=== PATIENT | male | born 1960 | race Caucasian/White ===

== ENCOUNTER 2023-02-26 | Outpatient (REF) | payer OTHER, SELFPAY | END 2023-02-26 00:01 | disposition home or self-care (01) | LOC: HO.HMGCLNP | PROVIDERS: Visit Provider Nurse Practitioner Primary Care | DX: Z11.52 Encounter for screening for COVID-19 (principal); J06.9 Acute upper respiratory infection, unspecified | CPT/HCPCS: 0241U ==

== ENCOUNTER 2023-02-26 13:05 | Outpatient (AMB) | payer OTHER, SELFPAY ==
--- NOTE | 2023-02-26 15:52 | MHC.OFFWIV ---
Intake Vital Signs 02/26/23 15:57 Height 5 ft 7.5 in BP 118/72 Blood Pressure Location Lt brachial Position Sitting Pulse 74 Pulse Source Pulse Oximeter Temp 98.1 F Temp Source Oral Pulse Oximetry (%) 97 Oxygen Delivery Method Room Air Intake Visit Reasons: [employer], right eye irritation,chest eusebia (Lobby masked) Intake Note: pt is here for c/o right eye irritation, denies vision changes, chest congestion, back pain since zhang Patient Tobacco Use Status: Never used Tobacco Allergies No Known Allergies Allergy (Mild, Verified 02/26/23 15:57) NONE Do you need a note to return to daycare/school/sports/work: Yes HPI HPI Comments History of Present Illness Details Patient is a 62-year-old male in today for a sick visit. He has symptoms of sore throat, cough, chest tightness x5 days. States that other people at home are also sick. He also has a complaint eye redness in the right eye with excessive mucus production to the point that it feels like when he wakes up his eye is closed shut. States that there is an intermittent stinging when he tries to wash it. Denies any trauma to the area. Does have a past surgical history significant for for cataract surgery with lens. Denies any vision changes. Denies any nausea, vomiting, chest pain, shortness a breath, dizziness. [facility] Social History (System 06/07/20 @ 15:24 by Germania Frausto) Patient Tobacco Use Status: Never used Tobacco Review of Systems Const Details: Constitutional : No Weight loss, No Fever, No Chills, Admits Fatigue, No Malaise ENT/Mouth : Admits sore throat, No Rhinorrhea Eyes: Admits intermittent eye discomfort, Admits Swelling, Admits Redness Cardiovascular : No Chest Pain, No SOB, No Dyspnea on Exertion, No Orthopnea, No Edema, No Palpitations Respiratory : Admits Cough, Admits Sputum, No Wheezing Gastrointestinal : No Nausea, No Vomiting, No Diarrhea, No Constipation, No abdominal Pain, No Hematochezia, No Melena Genitourinary : No Dysuria, No Urinary Frequency, No Hematuria, Musculoskeletal : No joint pain, No Myalgias, No Joint Swelling Skin : No Skin Lesions, No rash Neuro : No Weakness, No Numbness, No Dizziness, No Headache Psych : No Anxiety/Panic, No Depression Heme/Lymph: No Bruising, No Bleeding,No Lymphadenopathy Endocrine : No Polyuria, No Polydipsia All other systems reviewed and are negative Physical Exam Vital Signs: Last Vital Signs Temp 98.1 F 02/26/23 15:57 Pulse 74 02/26/23 15:57 BP 118/72 02/26/23 15:57 Pulse Ox 97 02/26/23 15:57 Oxygen Delivery Method Room Air 02/26/23 15:57 Vital signs reviewed are stable. Const Other: Appearance: Alert.? Oriented X3.? No acute distress.? Head: Normocephalic, atraumatic, no step-offs or deformities Eyes: Pupils equal, round and reactive to light.?Right eye erythema. Positive for purulent drainage and puffiness. ENT: Pharynx erythema.?Septum midline. TM intact with effusion, no erythema. Neck: Normal inspection.? Neck supple.?Full ROM. CVS: Normal heart rate and rhythm.? Pulses normal.? Respiratory: No respiratory distress.? Breath sounds normal.?Yellow sputum production. Abdomen: Soft and nontender.? Skin: Skin warm and dry.? Normal skin color.? Normal skin turgor.? Neuro: Oriented X 3.? No motor deficit.? No sensory deficit. CN 2-12 intact Results Reviewed Results Reviewed: Will call patient with respiratory swab results. Assessment & Plan Assessment & Plan (1) Upper respiratory infection: Comment: Patient will be given prednisone, bends on today, azithromycin, to be taken as directed. Patient has been educated on side effects of medication how to take them appropriately. Code(s): J06.9 - Acute upper respiratory infection, unspecified Qualifiers: URI type: unspecified URI Qualified Code(s): J06.9 - Acute upper respiratory infection, unspecified Plan: Take your medications as prescribed. If you were prescribed antibiotics today, it is important that you take your medication to their entirety, do not skip any doses, do not finish them early. Follow-up with your primary care provider this week. Return to the emergency department with new or worsening symptoms. Such as fevers, chills, chest pain, shortness of breath, nausea, vomiting, dizziness, headache, vision changes, lethargy In case of emergency call 911 (2) Conjunctivitis: Comment: Patient has conjunctivitis of the right eye. Will be given ofloxacin eyedrops to be taken as directed. Patient has been educated on when to return to the walk-in clinic and signs of worsening symptoms. Patient states that he understands. Code(s): H10.9 - Unspecified conjunctivitis Qualifiers: Conjunctivitis type: acute Acute conjunctivitis type: unspecified Laterality: right Qualified Code(s): H10.31 - Unspecified acute conjunctivitis, right eye Plan: Follow-up with PCP Orders: Orders SARS-CoV2/FLU/RSV Today J06.9 - Acute upper respiratory infection, unspecified Coding Level of Care Code New Pt Level 4 (40891) Diagnoses Upper respiratory tract infection, unspecified type J06.9 URI type: unspecified URI Acute conjunctivitis of right eye, unspecified acute conjunctivitis type H10.31 Conjunctivitis type: acute Acute conjunctivitis type: unspecified Laterality: right Time Spent (min) 30
[2023-02-26 15:57] VITALS: BP 118/72; PULSE 74; TEMP 36.7; O2SAT 97
== END 2023-02-26 16:57 | disposition home or self-care (01) ==
PROVIDERS: PCP Internal Medicine; Visit Provider Nurse Practitioner Primary Care
DX: J06.9 Acute upper respiratory infection, unspecified (principal); H10.31 Unspecified acute conjunctivitis, right eye
CPT/HCPCS: 99204